=== PATIENT | male | born 1955 | race African-American/Black ===

== ENCOUNTER 2016-10-02 22:21 | Inpatient (IN) ==
--- NOTE | 2016-10-03 00:55 | Hospitalist History & Physical ---
History of Present Illness Chief complaint: transferred from [facility] for suspected UGIB History of present illness: Mr. Bowen is a 61 year old male who was transferred from [facility] for suspected UGIB. Patient is unhappy he is here and states that nothing is wrong with him. His daughter is with him and states that last night (10/02/16), patient became very weak and had to have three people to assist him to stand. Patient vomitted while at home and daughter states that it was coffee ground. While in the ER in [facility], daughter states that he vomitted a lot more and vomitus was coffee ground. Gastric occult was positive. Patient endorses some hiccups. He states that he may have vomitted because of the OTC sinus pills he was taking. He states that he had some rhinorrhea, post nasal drip, and cough for which he was taking allergy medications. He denies any NSAID use/ melena/hematochezia/abdominal pain. Patient admits to drinking beer early during the day. He states that he was depressed on yesterday about his birthdate ([birth year]) and recent deaths of his and child. He denies any SI or HI. He states that he drinks beers and was unable to quantify amount, frequency, and duration. He denies any history of alcohol withdrawals but is taking folic acid and keppra. He states that he has a history of seizure disorder. He denies any CP or SOB. Allergies Allergy/AdvReac Type Severity Reaction Status Date / Time No Known Allergies Allergy Verified 10/03/16 00:58 Medical,Surgical,& Family Hx - Medical History Cardio: History of: CAD, Hypertension Psychological: History of: Depression Neurology: History of: Seizures (none) - Surgical History Cardiac Surgeries: Patient Denies: Cardiac Catheterization Abdominal Surgeries: Patient denies: Abdominal Surgery Reproductive Surgeries: Patient denies;: Genitourinary Surgery - Family History Family History: noncontributory - Social History Smoking Status: Never smoker Frequency of Alcohol Use: Frequently Type of Drug Use: Unknown Marital Status: Lives With:: Alone - Constitutional Constitutional: Present: as per HPI (ROS per HPI otherwise negative) Exam - Constitutional General appearance: no acute distress (smells of alcohol) - Head Head exam: Present: normal inspection - Eye Eye exam: Present: EOMI Pupils: Present: JASMYNE - ENT ENT exam: Present: normal external ear exam - Neck Neck exam: Present: normal inspection - Respiratory Respiratory exam: Present: clear to auscultation bilaterally - GI/Abdominal GI/Abdominal exam: Present: normal bowel sounds, soft. Absent: guarding, mass, tenderness - Extremities Exam Extremities exam: Absent: edema - Neurological Exam Neurological exam: Present: alert, oriented X3 - Psychiatric Psychiatric exam: Present: normal affect, normal mood - Skin Skin exam: Present: normal color Results - Labs Labs: from [facility]: 11.5 6.7 > <336 34.8 137 99 2 <173 3.7 28 0.8 lipase: 121 ETOH level: 351 EKG: NSR - EKG EKG results: sinus rhythm - Impressions Assessment: 1. Coffee ground emesis 2. Suspected UGIB: likely 2nd to M-W tear/gastritis/PUD 3. ETOH intoxication 4. ETOH abuse/dependence 5. Depression, no SI or HI 6. Comorbid conditions: h/o seizure disorder, heart disease, HTN Plan: admit to ICU for closer monitoring; if stable, can be moved to the floor; continue protonix drip; serial monitoring of H/H; consult GI; suspect patient had ETOH withdrawal in the past given treatment for seizures which could be 2nd to withdrawal; will monitor and treat; IVFs; add thiamine/folate; control hypertension; consult mental health; DVT prophalaxis with SCDs. Resume home medications as appropriate. The plan of care may be modified as more information becomes available.
[2016-10-03] MEDS ORDERED: ONDANSETRON 4 MG/2 ML VIAL IV PRN (01:10)
[2016-10-03] MEDS ORDERED: LORazepam 2 MG/1 ML VIAL IV PRN (01:17)
[2016-10-03] MEDS ORDERED: hydrALAZINE 20 MG/1 ML VIAL IV PRN (01:21)
[2016-10-03] MEDS ORDERED: THIAMINE INJ 100 MG, FOLIC ACID INJ 1 MG, MAGNESIUM SULF INJ 2 GM, MULTIVITAMIN INJ 10 ... IV ONE (02:00)
[2016-10-03 02:08] LABS: Hemoglobin 10.5 GM/DL (14.0-18.0)
[2016-10-03] MEDS: PANTOPRAZOLE INJ 200 MG in SODIUM CHLORIDE 0.9% 250 ML IV SCH (02:32)
[2016-10-03 05:43] LABS: Calcium 7.7 MG/DL (8.5-10.1); Magnesium 1.8 MG/DL (1.8-2.4); Osmolality,Calculated 275.3 MOS/KG (273-304); Potassium 3.9 MMOL/L (3.5-5.1)
[2016-10-03 05:46] LABS: Basophils # 0.1 10*3/uL (0.0-0.2); Basophils % 0.8 % (0.0-0.8); Eosinophils # 0.1 10*3/uL (0.0-0.87); Eosinophils % 2.3 % (0.00-10.9); Hematocrit 32.9 VOL% (42.0-52.0); Hemoglobin 10.4 GM/DL (14.0-18.0); Immature Granulocytes % 0.5 %; Immature Granulocytes Absolute 0.03 #; Lymphocytes # 1.2 10*3/uL (1.4-4.0); Lymphocytes % 19.3 % (21.2-54.2); Mean Corpuscular HGB Conc 31.6 GM/DL (32-36); Mean Corpuscular Hemoglobin 26 PG (27-34); Mean Corpuscular Volume 81.4 FL (87-102); Mean Platelet Volume 9.9 FL (9.6-12.0); Monocytes # 0.8 10*3/uL (0.11-0.8); Monocytes % 12.6 % (1.7-12.7); Neutrophils # 3.9 10*3/uL (1.4-7.4); Neutrophils % 64.5 % (38.7-73.9); Platelet Count 259 T/CUMM (130-400); Red Blood Count 4.04 MC/CUMM (3.8-5.5); Red Cell Distribution Width 17.4 % (9.3-17.3); White Blood Count 6.1 T/CUMM (4-12)
--- NOTE | 2016-10-03 06:58 | Gastrointestinal Consult Note ---
Assessment and Plan (1) History of gastric ulcer Status: Acute Current Visit: Yes (2) Hematemesis with nausea Status: Acute Assessment and plan: This patient is a wide differential on causes for the bleeding including esophagitis, Lizzie-Knight tear, erosive gastritis, gastric cancer, peptic ulcer disease, duodenitis, and esophageal varices. We will perform upper endoscopy later on this morning to see if we can distinguish the causes, provided the patient agrees. Risks of the procedure include but are not limited to: Bleeding, infection, perforation, cardiac and pulmonary compromise. His hematocrit is 32% and stable, he can be transferred to the floor after the endoscopy. Current Visit: Yes (3) Acute posthemorrhagic anemia Status: Acute Assessment and plan: We should be able to explore upper endoscopy to see if we can find a source for the patient's bleeding and make sure this is not gastric cancer. The patient has this history of ulcers in the past and will make sure this is not recurrent. We will definitely check him for Helicobacter pylori. I suspect toxic gastritis. Current Visit: Yes (4) History of alcoholism Status: Acute Assessment and plan: The patient needs to discontinue drinking entirely. There is a good chance he is toxic gastritis from the alcohol intake versus Lizzie-Knight tear from vomiting and/or gastric ulcers. He denies use of NSAIDs at home to me. Current Visit: Yes (5) Anal stenosis Status: Acute Assessment and plan: This patient will need colonoscopy as an outpatient during the colonoscopy should be able to dilate his anus in order to allow him to defecate more easily. He really does not complain of any diarrhea or constipation on a routine basis. His last colonoscopy was approximately 12-13 years ago. Current Visit: Yes History of Present Illness Chief complaint: Hematemesis and drop in hematocrit to 32.5%, epigastric pain History of present illness: Mr. Bowen is a 61 year old male who is fairly depressed lately and has a history of drinking approximately 12 beers yesterday as part of his birthday and developed some epigastric pain nausea and vomiting had several episodes of hematemesis and developed a seizure as well as acute weakness. Is dropped his hematocrit down to 32.5% this morning but that is stable from yesterday. His daughter brought him to [facility] where he was found to have more hematemesis and was transferred here for full evaluation. Patient states to me that he had both upper and lower endoscopy done approximately 12-13 years ago when they discovered that he had a ulcer. He has been treating himself lately with over- the-counter Zantac which does a fair job at suppressing his acidity. The patient has low-grade epigastric pain from time to time he states that he has constipation from time to time, but in describing his constipation is simply hard stools twice per day. On physical examination this patient has anal stenosis and states that his stools are long and ribbonlike. He states he also has a history of hemorrhoids. He has not had any recent rectal bleeding no melena that he attest to. His reflux is daily and he has fair amount of hiccups as well. 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 On admission this patient's alcohol level was 351 now down to 189 at 5:00 this morning. He denies NSAID use at home. Home Medications Medication Instructions Recorded Confirmed Type Folic Acid Tab 1 mg PO DAILY 10/03/16 10/03/16 History Magnesium Chloride [Magnesium Dr] 64 mg PO BID 10/03/16 10/03/16 History Metoprolol Tartrate 25 mg PO BID 10/03/16 10/03/16 History Potassium Chloride 20 meq PO BID 10/03/16 10/03/16 History levETIRAcetam [Levetiracetam] 500 mg PO BID 10/03/16 10/03/16 History Allergies Allergy/AdvReac Type Severity Reaction Status Date / Time No Known Allergies Allergy Verified 10/03/16 00:58 Medical,Surgical,& Family Hx - Medical History Cardio: History of: CAD, Hypertension Psychological: History of: Depression Neurology: History of: Seizures (none) - Surgical History Cardiac Surgeries: Patient Denies: Cardiac Catheterization Abdominal Surgeries: Patient denies: Abdominal Surgery Reproductive Surgeries: Patient denies;: Genitourinary Surgery - Social History Smoking Status: Never smoker Frequency of Alcohol Use: Frequently Type of Drug Use: Unknown Review of systems: Constitutional: Denies fever, chills, but does admit to recent nausea, and vomiting Eyes: Denies dry eyes, and scleral icterus HENT: Denies headaches Cardiovascular: Denies acute chest pain and claudication Respiratory: Denies shortness of breath, wheezing, and difficulty breathing, denies cough Gastrointestinal: As noted in the HPI Genitourinary: Denies dysuria and hematuria Neurologic: Denies vision loss, and loss of sensation Musculoskeletal: Patient does have some joint swelling, joint stiffness, and muscular weakness Psychiatric: Admits to depression but no leatha symptoms Heme-Lymph: Denies easy bruising, lymph node enlargement or tenderness, night sweats, excessive bleeding Allergies-immunologic: Denies pruritus and rhinorrhea Exam - Constitutional Vitals: Period Temp Pulse Resp BP Sys/Sanders Pulse Ox Last 24 Hr 97.9 F-98.2 F 72-115 15-29 109-158/65-93 96-99 Exam: Constitutional: Well-developed, well-nourished, alert, and in no acute distress Head and face: Head: Normocephalic atraumatic Eyes: Conjunctiva without injection, no gross scleral icterus, pupils equal and round bilaterally Ears: Intact to conversation in both ears Nose: External appearance is normal, nares patent Mouth: Oral mucous membranes moist without erythema dentition noted to be without erosion Neck: Normal appearance, no masses or tenderness, trachea midline Thyroid: Gland midline and appropriate size for age Respiratory: Normal respiratory effort, clear to auscultation without wheezes, rhonchi or rales Cardiovascular: Regular rate and rhythm, normal S1, S2, the exam is without rubs, murmurs or gallops. Gastrointestinal: Epigastric tenderness to palpation, normal active bowel sounds, tone normal without rigidity or guarding, no masses present, no hepatomegaly, no spleen tip felt. Rectal examination shows external hemorrhoids 1 of these is thrombosed posteriorly patient also has an anal ring present that did not allow the passage of my finger, stool is brown and guaiac negative surprisingly Lymphatic: Neck without adenopathy, axilla without lymphadenopathy present Musculoskeletal: Right and left lower extremities without evidence of edema Skin and subcutaneous tissue: No rashes or ulcerations noted, normal skin turgor, digits and nails without clubbing/cyanosis/deformities. Neurologic: The patient is grossly oriented to person place and time, cranial nerves show tongue movements are normal with normal tongue extrusion midline, light touch sensation is intact. Psychiatric: No hallucinations or delusions are present, does delete appear depressed Results - Labs CBC & BMP: 10/03/16 05:12 10/03/16 05:12
[2016-10-03] MEDS ORDERED: LIDOCAINE 2% 5 ML VIAL ONE (08:45)
[2016-10-03] MEDS ORDERED: ESMOLOL 100 MG/10 ML VIAL IV ONE (08:45)
[2016-10-03] MEDS ORDERED: PROPOFOL 200 MG/20 ML VIAL IV ONE (08:45)
--- NOTE | 2016-10-03 08:58 | Operative Note ---
Date of procedure: 10/03/16 Pre-op diagnosis: Hematemesis with hematocrit down to 32%, alcoholism Post-op diagnosis: other (This patient's majority of bleeding appears to be coming from the severe LA class D erosive esophagitis for 11 cm, biopsies were obtained to look for Salcedo's, a 3 cm hiatal hernia and some scant amount of retained fluid in the stomach and erosive and also seen. Nonerosive gastritis. There was a submucosal projection into the stomach and had the appearance of a pancreatic rest. Mild duodenitis was also seen.) Procedure: PROCEDURE: Esophagogastroduodenoscopy (EGD) with cold biopsy for pathology REFERRING PHYSICIAN: [Claire Cedillo MD] INDICATIONS: [Hematemesis with hematocrit down to 32% in a patient who is a active alcoholic and no history of NSAIDs,] [The prior H&P was reviewed and interrim changes are as noted: ][No change from GI consultation today.] ENDOSCOPIST: Jeremy Lindsey MD ENDOSCOPE: grabHalo Video 100 System upper endoscope ASA CLASS: [3] EXAM: CV: [regular rate and rhythm] Respiratory: [Clear without wheezes] Abdominal: [active bowel sounds] MEDICATION: Per nursing anesthesia protocol, see their notes PROCEDURE: After discussion of the potential risks and benefits of upper endoscopy, the informed consent was obtained. The patient was then placed in the left lateral decubitus position where sedation was achieved as noted above. Esophageal intubation was performed without difficulty, and the endoscope was advanced through the esophagus, stomach and duodenum. A slow withdrawal was then performed with retroflexion in the stomach for careful inspection of the incisura angularis, fundus and cardia. The scope was then returned to a neutral position and withdrawn through the esophagus. The patient tolerated the procedure well and without complication. BIOPSIES: [Gastric antrum/body] PHOTOGRAPHS: [Obtained] FINDINGS: Hypopharynx and Larynx: [Normal] Esohagoscopy Upper and middle thirds: [Severe LA class D erosive esophagitis at 26-37 cm , biopsied] Lower third [severe LA class D erosive esophagitis between 26 and 37 cm , biopsied] Esophogastric junctions: [No gross evidence of stricturing, severe LA class D esophagitis as mentioned above.] Gastroscopy: Cardia/Fundus: [3 cm hiatal hernia noted, scant amount of retained green fluid] Body: [Moderate nonerosive gastritis] Antrum and pylorus [at the EG junction is a fingerlike mostly submucosal projection that was biopsied that has the appearance of a large, pancreatic rest some small punctate erosions noted here as well] Duodenoscopy: Bulb [mild duodenitis in the bulb] Second and third portions: [Normal] IMPRESSION: [This patient's majority of bleeding appears to be coming from the severe LA class D erosive esophagitis for 11 cm, biopsies were obtained to look for Salcedo's, a 3 cm hiatal hernia and some scant amount of retained fluid in the stomach and erosive and also seen. Nonerosive gastritis. There was a submucosal projection into the stomach and had the appearance of a pancreatic rest. Mild duodenitis was also seen. ] RECOMMENDATIONS: [Follow up for biopsy results in 1-2 weeks by phone [phone]] [Continue anti-gastroesophageal reflux measures (avoid carbonated and acidic beverages, avoid eating within 2 hours of bedtime, avoid tight fitting clothing , and elevate the front bed posts 6 inches prior to sleeping.] The patient should be kept on Protonix 40 mg twice daily and will need this likely for the rest of his life. He needs to discontinue drinking immediately. If he is doing well tomorrow he can be discharged from the hospital. This patient needs colonoscopy in the future with rectal dilation due to anal stenosis--this can certainly be done as an outpatient. Observe for withdrawal seizures, delirium tremens. Jeremy Lindsey MD COPY TO: [Claire Cedillo MD] Anesthesia: MAC Surgeon / Physician: Jeremy Lindsey Estimated blood loss: minimal Specimens: other (Gastric antrum/body, gastric mass ?pancreatic rest?, distal esophagus.) Condition: stable Disposition: post procedure unit ([facility] Suite) Results - Labs CBC & BMP: 10/03/16 05:12 10/03/16 05:12 Discharge Plan - Discharge Medications No Action Folic Acid Tab 1 mg PO DAILY Potassium Chloride 20 meq PO BID Metoprolol Tartrate 25 mg PO BID Magnesium Chloride [Magnesium Dr] 64 mg PO BID levETIRAcetam [Levetiracetam] 500 mg PO BID - Follow Up or Referral - Forms/Instructions
--- NOTE | 2016-10-03 08:59 | Anesthesia Post-Op ---
Anesthesia Post OP - Post Ansesthetic Evaluation Patient seen in post op: Yes Resp: within normal limits CV: within normal limits Mental: within normal limits Temp: within normal limits [id number]: within normal limits Nausea and Vomiting: within normal limits Pain: within normal limits
[2016-10-03] MEDS ORDERED: levETIRAcetam 500 MG TABLET PO SCH (09:00)
[2016-10-03] MEDS ORDERED: METOPROLOL TARTRATE 25 MG TABLET PO SCH (09:00)
[2016-10-03] MEDS: chlordiazePOXIDE 10 MG CAPSULE PO SCH ×3 (14:04→20:07)
[2016-10-03] MEDS: levETIRAcetam 500 MG TABLET PO SCH (20:07)
[2016-10-03] MEDS: POTASSIUM CHLORIDE 20 MEQ TABLET PO SCH (20:07)
[2016-10-03] MEDS: METOPROLOL TARTRATE 25 MG TABLET PO SCH (20:08)
[2016-10-03] MEDS: MAGNESIUM CHLORIDE 64 MG TABLET PO SCH (20:08)
[2016-10-04] MEDS: PANTOPRAZOLE INJ 200 MG in SODIUM CHLORIDE 0.9% 250 ML IV SCH (01:42)
[2016-10-04] MEDS: METOPROLOL TARTRATE 25 MG TABLET PO SCH (09:20)
[2016-10-04] MEDS: MAGNESIUM CHLORIDE 64 MG TABLET PO SCH (09:21)
[2016-10-04] MEDS: levETIRAcetam 500 MG TABLET PO SCH (09:21)
[2016-10-04] MEDS: chlordiazePOXIDE 10 MG CAPSULE PO SCH (09:21)
[2016-10-04] MEDS: POTASSIUM CHLORIDE 20 MEQ TABLET PO SCH (09:21)
--- NOTE | 2016-10-04 11:06 | Discharge Summary ---
<Glenna Gillda - Last Filed: 10/04/16 10:49> Hospital Course - Hospital Course Hospital Course: This is a 61-year-old male that presented to [facility] as a transfer for higher level of care from [facility] on October 03, 2016 for the evaluation of upper GI bleed. The patient has a medical history significant for coronary artery disease, hypertension, depression, and alcohol abuse. The patient reported no significant surgical history at the time of encounter. The patient was obviously upset because he was transferred here and reported to the staff that that there was "nothing wrong with him". His family was present at bedside who served as historian after the patient refused to answer any questions. The daughter reported the onset of symptoms 1 day prior to presentation. The patient had apparently been celebrating for his birthday and drunk a large amount of alcohol. The daughter reported that he became very weak and had to have 3 people to help him stand. Shortly after that episode, the patient started to vomit which closely resembled coffee-ground. The daughter became alarmed and transported him to the ED at [facility] for further evaluation. The patient was noted to have multiple episodes of coffee-ground emesis in the ED there. The patient was subsequently transferred to [facility] for gastroenterology evaluation. The patient was seen and examined. Protein pump inhibitors and rehydration was started. Gastroenterology consultation was requested. On October 03, 2016, the patient underwent esophagogastroduodenoscopy under the direction of Dr. Jeremy Lindsey; which was significant for severe LA class D erosive esophagitis for 11 cm. In addition biopsies were obtained to assess for Salcedo's esophagus and a 3 cm hiatal hernia and a small amount of scant retained fluid is noted in the stomach and erosive was also seen. In addition, there was a small submucosal projection into the stomach and had the appearance of a pancreatic rest and mild duodenitis was seen. The patient was instructed to continue protein pump inhibitors and discontinue drinking immediately. In addition, the patient was also instructed to follow-up for biopsy results in 1-2 weeks by phone . The patient was also instructed to continue anti-gastroesophageal reflux measures such as avoiding carbonated and ascitic beverages, avoiding eating 2 hours of bedtime, avoid tight fitting clothing, and elevate the head of the bed at least 6 inches prior to sleeping. The patient was also told that he would need a colonoscopy in the near future due to rectal dilation due to anal stenosis in the outpatient setting. The patient's condition gradually improved. The patient's vital signs are stable. He has not experienced any significant overnight events. Today, we feel that he is indeed appropriate for discharge home to follow-up with his primary care physician and gastroenterology as indicated. We discussed in great detail with both the patient and family the need to immediately discontinue alcohol consumption. Discharge Plan - Discharge Data Disposition: Disch To Home/Self Care - Discharge Medications New Pantoprazole Tab [Protonix Tab] 40 mg PO BID #60 tablet Continue Folic Acid Tab 1 mg PO DAILY Potassium Chloride 20 meq PO BID Metoprolol Tartrate 25 mg PO BID Magnesium Chloride [Magnesium Dr] 64 mg PO BID levETIRAcetam [Levetiracetam] 500 mg PO BID - Follow Up or Referral - Forms/Instructions Exam - Constitutional Vitals: Period Temp Pulse Resp BP Sys/Sanders Pulse Ox Last 24 Hr 97.5 F-98.9 F 76-94 18-20 130-165/70-93 95-100 DS: Provider Date of admission: 10/02/16 23:56 Primary care physician: Jeremy Saba MD Attending physician on admission: Gaby Mckeon MD Consults: 10/03/16 01:11 Consult to Physician [CONS] Routine Comment: suspected UGIB Consulting Provider: Jeremy Lindsey When should Consulting Provider be notified: In am Person Notified: YUN Date Notified: 10/03/16 Time Notified: 10:47 10/03/16 01:12 Consult to Case Mgmt/Social Srvs [CONS] Routine Reason for Case Mgmt/Social Srvs: Psychiatric Management Consult Comment: ETOH dependence and depression 10/03/16 07:12 Consult to Anesthesiology [CONS] Routine Consulting Provider: Reason for Anesthesiology: Pre-op Clearance Discharging clinician: Troy Gill CNP <Ivette Donovan - Last Filed: 10/04/16 11:25> Hospital Course - Time spent with patient Time with patient DS: Less than 30 minutes (28) Diagnosis - Discharge Diagnosis (1) Erosive gastritis Status: Chronic (2) History of gastric ulcer Status: Chronic (3) Hematemesis with nausea Status: Resolved (4) History of alcoholism Status: Chronic (5) Anal stenosis Status: Chronic Discharge Plan - Discharge Data Condition at Discharge: Stable Discharge Diet: advance to your usual diet Activity: increase activity as tolerated Hygiene: no restrictions Weight Bearing at Discharge: weight bear as tolerated Contact your physician if you experience:: Bleeding Exam - Constitutional General appearance: over weight - Head Head exam: Present: normocephalic, atraumatic - Eye Eye exam: Present: EOMI Pupils: Present: JSAMYNE - ENT ENT exam: Present: normal exam - Neck Neck exam: Present: normal inspection - Respiratory Respiratory exam: Present: clear to auscultation bilaterally. Absent: rhonchi, wheezes - Cardiovascular Cardiovascular exam: Present: regular rate and rhythm - GI/Abdominal GI/Abdominal exam: Present: normal bowel sounds, soft. Absent: tenderness, rebound - Extremities Exam Extremities exam: Present: normal inspection - Back Exam Back exam: Present: normal inspection - Neurological Exam Neurological exam: Present: alert, oriented X3 - Psychiatric Psychiatric exam: Present: normal affect, normal mood - Skin Skin exam: Present: warm, intact
[2016-10-04 11:36] VITALS: BP 152/91
--- NOTE | 2016-10-05 14:16 | Pathology Report from [facility] ---
[facility] ACCESSION # : [id number] PATIENT NAME : Yonny Bowen ORDERING DR : Jeremy Lindsey MD CLINICAL HX: Nausea, hematesis POST-OP DX: Same SPECIMEN INFO: #1 HAN #2 Gastric BX #3 Esophageal GROSS DESCRIPTION: Received in formalin in three parts labeled:#1 YONNY BOWEN & #1 is a 0.6 x 0.3 cm aggregate of stein tissue submitted in cassette #1.#2 YONNY BOWEN & #2 consists of a 0.5 x 0.5 cm aggregate of stein tissue submitted in cassette #2.#3 YONNY BOWEN & #3 is a 0.4 x 0.3 cm aggregate of stein tissue submitted in cassette #3. DIAGNOSIS FOR YONNY BOWEN: #1 GASTRIC ANTRAL BIOPSY: Chronic superficial gastritis. No evidence of malignancy. H. pylori not seen on H&E or special stain with appropriate control.#2 GASTRIC BIOPSY: Chronic superficial gastritis. No evidence of malignancy. H. pylori-like organisms identified on special stain with appropriate control. (H. pylori organisms not seen on H&E.)# 3 ESOPHAGEAL BIOPSY: Acute esophageal ulceration. No evidence of malignancy. COLLECTED DATE: 10/03/2016 [facility] REPORT DATE: 10/04/2016 ELECTRONICALLY SIGNED BY: Justice Reddy III, M.D. 10/04/2016 - 12:09:51 DIANNA
[2016-10-06] MEDS ORDERED: PANTOPRAZOLE 40 MG VIAL IV SCH (09:00)
== END 2016-10-04 12:55 | disposition home or self-care (01) | DRG 381 ==
LOC: SUATTDRO 23:56 → N.ICU 23:56 → N.5E 10-03 10:10
PROVIDERS: ADMIT Internal Medicine; ATTEND Internal Medicine